=== PATIENT | male | born 1985 | race African-American/Black ===

== ENCOUNTER 2019-09-15 10:49 | Emergency (ER) | payer BC ==
[2019-09-15] MEDS ORDERED: Ketorolac 60 MG/2 ML SDV IM ONE (11:06)
--- NOTE | 2019-09-15 11:13 | EDM.PDOC ---
ED HPI GENERAL MEDICAL PROBLEM - General Chief Complaint: Upper Extremity Injury/Pain Stated Complaint: PROBLEM WITH WRIST Time Seen by Provider: 09/15/19 11:03 Source of Information: Reports: Patient History Limitations: Reports: No Limitations - History of Present Illness INITIAL COMMENTS - FREE TEXT/NARRATIVE: HISTORY AND PHYSICAL: History of present illness: Patient is a 34-year-old male who presents to the emergency room with complaints of a "lump" to his left wrist. He states he is noticed this area for approximately 4 weeks and does notice some fluctuant in size. He denies any numbness or tingling of the affected extremity. Denies any injury or trauma. He states that the area is painful to palpation and does bother him when he is having to use his hands or move his wrist frequently. Offers no systemic complaints. Review of systems: As per history of present illness and below otherwise all systems reviewed and negative. Past medical history: As per history of present illness and as reviewed below otherwise noncontributory. Surgical history: As per history of present illness and as reviewed below otherwise noncontributory. Social history: See social history for further information Family history: As per history of present illness and as reviewed below otherwise noncontributory. Physical exam: General: Well-developed and well-nourished 34-year-old male. Alert and oriented. Nontoxic-appearing and in no acute distress. HEENT: Atraumatic, normocephalic, pupils equal and reactive bilaterally, negative for conjunctival pallor or scleral icterus, mucous membranes moist, trachea midline. No drooling or trismus noted. No meningeal signs. No hot potato voice noted. Lungs: Clear to auscultation, breath sounds equal bilaterally. Heart: S1S2, regular rate and rhythm without overt murmur Abdomen: Soft, nondistended, nontender. Negative for masses or costovertebral tenderness. Skin: SEE EXTREMITY. Otherwise skin is intact, warm, dry. No lesions or rashes noted. Extremities: Atraumatic, moves all extremities per self without difficulty or deficits, dime size ganglion cyst noted to the volar aspect of the left wrist. Neurovascular unremarkable. Neuro: Awake, alert, oriented. Cranial nerves II through XII unremarkable. Cerebellum unremarkable. Motor and sensory unremarkable throughout. Exam nonfocal. Notes: Patient request something for pain. We discussed the need for follow-up with hand or general surgery to have the ganglion cyst removed if it becomes too bothersome. Supportive care measures were reviewed and discussed. Voices understanding and is agreeable to plan of care. Denies any further questions or concerns at this time. Diagnostics: None Therapeutics: Toradol Prescription: Diclofenac Impression: Volar ganglion cyst Plan: 1. You can have the cyst removed in a controlled setting with a general surgeon. This cyst is too close to the radial artery to do in the ER or clinic. Activity modifications may help with discomfort. Compressive wraps or wrist supports worn during activities that exacerbate discomfort can also help. 2. Use the Diclofenac as directed and as needed 3. Return to the ED as needed and as discussed. Definitive disposition and diagnosis as appropriate pending reevaluation and review of above. left wrist Pain Score (Numeric/FACES): 7 - Related Data Allergies Allergy/AdvReac Type Severity Reaction Status Date / Time No Known Allergies Allergy Verified 09/15/19 11:01 Home Meds: Home Meds Diclofenac Sodium [Voltaren] 50 mg PO TID PRN #30 tab.ec 09/15/19 [Rx] Past Medical History - Past Health History Medical/Surgical History: Denies Medical/Surgical History Social & Family History - Family History Family Medical History: Noncontributory - Tobacco Use Smoking Status *Q: Never Smoker - Recreational Drug Use Recreational Drug Use: No Review of Systems - Review of Systems Review Of Systems: Comprehensive ROS is negative, except as noted in HPI. ED EXAM, GENERAL - Physical Exam Exam: See Below (See dictation) Course - Vital Signs Last Recorded V/S: Last Vital Signs Temp 97.4 F 09/15/19 10:58 Pulse 90 09/15/19 10:58 Resp 16 09/15/19 10:58 BP 145/100 H 09/15/19 10:58 Pulse Ox 96 09/15/19 10:58 - Orders/Labs/Meds Meds: Medications Discontinued Medications Generic Name Dose Route Start Last Admin Trade Name Freq PRN Reason Stop Dose Admin Ketorolac Tromethamine 60 mg 09/15/19 11:06 09/15/19 11:19 Toradol IM 09/15/19 11:07 60 mg ONETIME ONE Administration Departure - Departure Time of Disposition: 11:12 Disposition: Home, Self-Care 01 Clinical Impression: Ganglion cyst - Discharge Information Prescriptions: Diclofenac Sodium [Voltaren] 50 mg PO TID PRN #30 tab.ec PRN Reason: Pain Instructions: Ganglion Cyst Referrals: PCP,None [Primary Care Provider] - Forms: ED Department Discharge Additional Instructions: The following information is given to patients seen in the emergency department who are being discharged to home. This information is to outline your options for follow-up care. We provide all patients seen in our emergency department with a follow-up referral. The need for follow-up, as well as the timing and circumstances, are variable depending upon the specifics of your emergency department visit. If you don't have a primary care physician on staff, we will provide you with a referral. We always advise you to contact your personal physician following an emergency department visit to inform them of the circumstance of the visit and for follow-up with them and/or the need for any referrals to a consulting specialist. The emergency department will also refer you to a specialist when appropriate. This referral assures that you have the opportunity for follow-up care with a specialist. All of these measure are taken in an effort to provide you with optimal care, which includes your follow-up. Under all circumstances we always encourage you to contact your private physician who remains a resource for coordinating your care. When calling for follow-up care, please make the office aware that this follow-up is from your recent emergency room visit. If for any reason you are refused follow-up, please contact the [facility] Emergency Department at and asked to speak to the emergency department charge nurse. [facility] [address] [place] [id number] [facility] [address] [place] [id number] 1. You can have the cyst removed in a controlled setting with a general surgeon. This cyst is too close to the radial artery to do in the ER or clinic. Activity modifications may help with discomfort. Compressive wraps or wrist supports worn during activities that exacerbate discomfort can also help. 2. Use the Diclofenac as directed and as needed 3. Return to the ED as needed and as discussed. Sepsis Event Note - Evaluation Sepsis Screening Result: No Definite Risk - Focused Exam Vital Signs: Vital Signs Temp Pulse Resp BP Pulse Ox 09/15/19 10:58 97.4 F 90 16 145/100 H 96 Date Exam was Performed: 09/15/19 Time Exam was Performed: 11:46
== END 2019-09-15 12:12 | disposition home or self-care (01) ==
LOC: MW.ED 10:49
DX: M67.432 Ganglion, left wrist (principal)
CPT/HCPCS: 96372; 99283; J1885

== ENCOUNTER 2022-06-17 14:55 | Emergency (ER) | payer BC, OTHER ==
[2022-06-17] MEDS ORDERED: Orphenadrine 60 MG/2 ML Inj IM ONE (15:43)
[2022-06-17] MEDS ORDERED: Ketorolac 60 MG/2 ML SDV IM ONE (15:43)
== END 2022-06-17 17:22 | disposition home or self-care (01) ==
LOC: MW.ED 14:55
DX: J02.9 Acute pharyngitis, unspecified (principal); M54.50 Low back pain, unspecified
CPT/HCPCS: 71045; 87651; 96372; 99283; J1885; J2360